=== PATIENT | female | born 1980 | race Caucasian/White ===

== ENCOUNTER 2022-11-29 07:12 | Outpatient (CLI) | payer OTHER, SELFPAY | END 2022-11-29 07:13 | disposition home or self-care (01) | LOC: NFLDREF 23:45 | PROVIDERS: PCP Family Medicine; Referring Provider Family Medicine; Visit Provider Family Medicine | DX: Z00.00 Encounter for general adult medical examination without abnormal findings (principal); Z13.6 Encounter for screening for cardiovascular disorders; Z13.29 Encounter for screening for other suspected endocrine disorder | CPT/HCPCS: 80053; 80061; 84443 ==

== ENCOUNTER 2023-06-26 14:41 | Outpatient (CLI) | payer OTHER, SELFPAY ==
--- NOTE | 2023-06-26 15:00 | CRLHL7_ITS ---
For Patients: As a result of the Century Cures Act, medical imaging exams and procedure reports are released immediately into your electronic medical record. You may view this report before your referring provider. If you have questions, please contact your health care provider. BILATERAL SCREENING MAMMOGRAM WITH COMPUTER-AIDED DETECTION TECHNIQUE: CC and MLO views were obtained. These mammographic images have been obtained using full-field digital technique. These mammographic images were interpreted with the benefit of computer-aided detection. COMPARISON FILM: Baseline. FINDINGS: There are scattered areas of fibroglandular density IMPRESSION: There is no radiographic evidence for malignancy. ASSESSMENT: BI-RADS Category 1: Negative RECOMMENDATION: Routine screening mammogram in 1 year. A lay language report of this examination will be provided to the patient. Omar Morgan M.D. Diagnostic Radiologist [email or web address] ELIJAH/Dictated by: Omar Morgan MD @ 06/27/2023 12:34:00 PM (Electronically Signed)
== END 2023-06-26 14:42 | disposition home or self-care (01) ==
LOC: MAMMO 14:45
PROVIDERS: PCP Family Medicine; Visit Provider Family Medicine
DX: Z12.31 Encounter for screening mammogram for malignant neoplasm of breast (principal)
CPT/HCPCS: 77067